=== PATIENT | male | born 1955 | race Native Hawaiian/Other Pacific Islander ===

== ENCOUNTER 2016-07-10 07:26 | Outpatient (CLI) | payer OTHER ==
[~2016-07-10] VITALS: Ht 33 cm; Wt 0.5 kg
[~2016-07-10 07:26] MED LIST: MUPI2OIN2 TOP; RLFLU500T PO; VALA500T2 PO
== END 2016-07-10 21:24 | disposition home or self-care (01) ==
LOC: NM 07:26
DX: R06.09 Other forms of dyspnea (principal)
CPT/HCPCS: A9500; J2785

== ENCOUNTER 2017-01-27 16:55 | Outpatient (CLI) | payer OTHER | END 2017-01-27 19:11 | disposition home or self-care (01) | LOC: CT 16:55 | DX: K44.9 Diaphragmatic hernia without obstruction or gangrene (principal) | CPT/HCPCS: Q9963 ==

== ENCOUNTER 2017-02-10 08:03 | Day surgery (SDC) | payer OTHER ==
[2017-02-10 09:11] LABS: PLATELET COUNT 258 K/uL (142-355)
[2017-02-10 09:41] LABS: POTASSIUM 3.9 mmol/L (3.6-5.2); SODIUM 140 mmol/L (136-145)
== END 2017-02-10 12:37 | disposition home or self-care (01) ==
LOC: OR 08:03
PROVIDERS: Student in an Organized Health Care Education/Training Program
PROC: 0DB68ZZ Excision of Stomach, Via Natural or Artificial Opening Endoscopic (ICD-10-PCS; principal; 2017-02-10)
PROC: 0DB48ZZ Excision of Esophagogastric Junction, Via Natural or Artificial Opening Endoscopic (ICD-10-PCS; 2017-02-10)
PROC: 0DB38ZZ Excision of Lower Esophagus, Via Natural or Artificial Opening Endoscopic (ICD-10-PCS; 2017-02-10)
PROC: 0DB98ZZ Excision of Duodenum, Via Natural or Artificial Opening Endoscopic (ICD-10-PCS; 2017-02-10)
DX: K29.70 Gastritis, unspecified, without bleeding (principal); K29.80 Duodenitis without bleeding; K44.9 Diaphragmatic hernia without obstruction or gangrene; K21.0 Gastro-esophageal reflux disease with esophagitis; R11.2 Nausea with vomiting, unspecified; R10.9 Unspecified abdominal pain
CPT/HCPCS: 80053; 85027; J2001; J2250; J2704; J3010

== ENCOUNTER 2018-08-02 18:09 | Emergency (ER) | payer OTHER ==
[~2018-08-02] VITALS: Ht 170.2 cm; Wt 82.1 kg
[2018-08-02] MEDS ORDERED: CARAFATE1 GM PO (19:14)
[2018-08-02] MEDS ORDERED: ONDA4TAB3 PO (19:18)
[2018-08-02] MEDS ORDERED: PULMICORT0.5 MG/2 M INH (19:18)
[2018-08-02] MEDS ORDERED: RANI150T78 PO (19:18)
[2018-08-02] MEDS ORDERED: BROVANA15 MCG/2 M INH (19:28)
[2018-08-02 20:43] VITALS: BP 145/88; TEMP 98.6
== END 2018-08-02 20:49 ==
LOC: ED 18:09
DX: T74.21XA Adult sexual abuse, confirmed, initial encounter (principal)
CPT/HCPCS: 36415; 87490; 87535; 87590; 99283; G0432

== ENCOUNTER 2018-08-05 15:20 | Outpatient (CLI) | payer OTHER ==
[~2018-08-05 15:20] MED LIST changes: +BROVANA15 MCG/2 M INH; +CARAFATE1 GM PO; +ONDA4TAB3 PO; +PULMICORT0.5 MG/2 M INH; +RANI150T78 PO
== END 2018-08-05 22:40 | disposition home or self-care (01) ==
LOC: RAD 15:20
DX: M54.17 Radiculopathy, lumbosacral region (principal); S31.831D Laceration without foreign body of anus, subsequent encounter

== ENCOUNTER 2018-09-06 09:21 | Outpatient (CLI) | payer OTHER | END 2018-09-06 19:45 | disposition home or self-care (01) | LOC: MRI 09:21 | DX: M54.17 Radiculopathy, lumbosacral region (principal) ==

== ENCOUNTER 2018-10-08 12:04 | Emergency (ER) | payer OTHER ==
[~2018-10-08] VITALS: Ht 170.2 cm; Wt 82.1 kg
[2018-10-08 12:18] VITALS: BP 142/84; TEMP 98
== END 2018-10-08 15:05 | disposition home or self-care (01) ==
LOC: ED 12:04
DX: S52.591A Other fractures of lower end of right radius, initial encounter for closed fracture (principal); W18.39XA Other fall on same level, initial encounter; Y92.89 Other specified places as the place of occurrence of the external cause
CPT/HCPCS: 99282

== ENCOUNTER 2018-10-25 13:52 | Outpatient (CLI) | payer OTHER | END 2018-10-25 19:30 | disposition home or self-care (01) | LOC: RAD 13:52 | DX: M79.641 Pain in right hand (principal) ==

== ENCOUNTER 2018-11-15 12:52 | Outpatient (CLI) | payer OTHER | END 2018-11-15 19:20 | disposition home or self-care (01) | LOC: RAD 12:52 | DX: M79.641 Pain in right hand (principal) ==

== ENCOUNTER 2019-05-12 16:39 | Outpatient (CLI) | payer OTHER | END 2019-05-12 20:02 | disposition home or self-care (01) | LOC: RAD 16:39 | DX: M25.572 Pain in left ankle and joints of left foot (principal) ==

== ENCOUNTER 2021-11-01 19:11 | Emergency (ER) | payer OTHER ==
[~2021-11-01] VITALS: Ht 170.2 cm; Wt 82.1 kg
[2021-11-01 19:11] VITALS: TEMP 98.1
[2021-11-01 21:05] VITALS: BP 117/81
== END 2021-11-01 21:05 | disposition home or self-care (01) ==
LOC: ED 19:11
DX: S42.022A Displaced fracture of shaft of left clavicle, initial encounter for closed fracture (principal); W17.89XA Other fall from one level to another, initial encounter; Y92.89 Other specified places as the place of occurrence of the external cause
CPT/HCPCS: 96372; 99283; J1885; J2405

== ENCOUNTER 2021-11-04 13:13 | Outpatient (CLI) | payer OTHER | END 2021-11-04 19:02 | disposition home or self-care (01) | LOC: RAD 13:13 | PROVIDERS: ATTEND Family Medicine | DX: R07.81 Pleurodynia (principal) ==

== ENCOUNTER 2021-11-10 21:00 | Emergency (ER) | payer OTHER ==
[~2021-11-10] VITALS: Ht 170.2 cm; Wt 81.6 kg
[2021-11-10 21:46] LABS: PLATELET COUNT 310 K/uL (142-355)
[2021-11-10 21:48] LABS: POTASSIUM 3.3 mmol/L (3.6-5.2)
[2021-11-10 23:18] VITALS: BP 117/92; TEMP 98.6
== END 2021-11-10 23:18 | disposition home or self-care (01) ==
LOC: ED 21:00
PROVIDERS: Hospitalist
DX: K44.9 Diaphragmatic hernia without obstruction or gangrene (principal); E86.0 Dehydration; J44.9 Chronic obstructive pulmonary disease, unspecified
CPT/HCPCS: 36415; 80053; 83690; 85027; 96360; 96374; 99284; J2405; Q9963

== ENCOUNTER 2022-03-26 08:46 | Outpatient (CLI) | payer OTHER | END 2022-03-26 23:21 | disposition home or self-care (01) | LOC: US 08:46 | PROVIDERS: ATTEND Nurse Practitioner Family | DX: Z13.6 Encounter for screening for cardiovascular disorders (principal); Z87.891 Personal history of nicotine dependence; Z09 Encounter for follow-up examination after completed treatment for conditions other than malignant neoplasm ==